=== PATIENT | female | born 1970 | race African-American/Black ===

== ENCOUNTER 2016-12-08 13:36 | Inpatient (IN) | payer OTHER ==
[2016-12-08 14:13] VITALS: BMI 26.6
[2016-12-08] MEDS ORDERED: P-EPHED 60MG/TRIPROLIDI 2.5MG TABLET PO PRN (16:51)
[2016-12-08] MEDS ORDERED: MAGNESIUM HYDROX 2400MG/30ML ORAL SUSPENSION 30 ML CUP PO PRN (16:51)
[2016-12-08] MEDS ORDERED: LOPERAMIDE HCL 2 MG CAPSULE PO PRN (16:51)
[2016-12-08] MEDS ORDERED: MAGNESIUM CITRATE 300 ML BOTTLE PO PRN (16:51)
[2016-12-08] MEDS ORDERED: ACETAMINOPHEN 325 MG TABLET (FP) PO PRN (16:51)
[2016-12-08] MEDS ORDERED: chlordiazePOXIDE HCL 25 MG CAPSULE PO PRN (16:51)
[2016-12-08] MEDS ORDERED: MENTHOL/PHENOL 1 EACH UD MM PRN (16:51)
[2016-12-08] MEDS ORDERED: NICOTINE POLACRILEX 2 MG GUM BC PRN (16:51)
[2016-12-08] MEDS ORDERED: MAG HYDROX/AL HYDROX/SIMETH 30 ML UNIT-DOSE CUP PO PRN (16:51)
[2016-12-08] MEDS ORDERED: guaiFENesin/D-METHORPHAN HB 10 ML UNIT-DOSE CUPS PO PRN (16:51)
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
[2016-12-08] MEDS ORDERED: chlordiazePOXIDE HCL 25 MG CAPSULE PO ONE (17:15)
[2016-12-08] MEDS: chlordiazePOXIDE HCL 25 MG CAPSULE PO SCH ×2 (17:37→22:21)
[2016-12-08] MEDS: NICOTINE 14 MG/24 HOURS TOPICAL PATCH TD SCH (17:40)
[2016-12-08] MEDS: TRIAMTERENE AND HCTZ - 37.5 MG/25 MG CAPSULE PO SCH (18:40)
[2016-12-08] MEDS: diphenhydrAMINE HCL 50 MG CAPSULE PO PRN (22:21)
[2016-12-08] MEDS: THIAMINE HCL 100 MG TABLET (FP) PO SCH (22:21)
[2016-12-08] MEDS: CLOTRIMAZOLE 1% CREAM 15 GM TUBE TP SCH (22:22)
[2016-12-08] MEDS: TOLNAFTATE 1% CREAM 15 GM TUBE TP SCH (22:22)
[2016-12-09] MEDS: chlordiazePOXIDE HCL 25 MG CAPSULE PO SCH ×4 (05:41→22:31)
[2016-12-09] MEDS: METHADONE HCL 40 MG DISPERSABLE TABLET PO SCH (07:58)
--- NOTE | 2016-12-09 08:33 | CONSULT ---
[facility] Psychiatric Consult - Data Date of interview: 12/09/16 Admission source: [facility] Identifying data: This is 46 years old female with psychiatric hospitalization history itnoxciated with: Alcohol, Heroin, Cocaine and Nicotine Substance Abuse History: - Smoking Cessation. Smoking history: Current every day smoker. Have you smoked in the past 12 months: Yes. Aproximately how many cigarettes per day: 4. Hx Chewing Tobacco Use: No. Initiated information on smoking cessation: Yes. 'Breaking Loose' booklet given: 12/08/16. - Substance & Tx. History. Hx Alcohol Use: Yes. Hx Substance Use: Yes. Substance Use Type : Alcohol, Cocaine, Heroin. Hx Substance Use Treatment: Yes (detox). - Substances Abused. Cocaine. Route: Inhalation. Frequency: 1-3 times last 30 days. Amount used: $100. Age of first use: 18. Date of Last Use: . Heroin. Route: Inhalation. Frequency: 3-6 times per week. Amount used : 2 bags. Age of first use: 25. Date of Last Use: 12/07/16. Alcohol- vodka. Route: Oral. Frequency: Daily. Amount used: 1 pt. Age of first use: 15. Date of Last Use: 12/07/16 Medical History: Denies Psychiatric History: Patient rteports unclear psychiatroic hospitalization after suicidal attempt byt OD on about more then 10 years ago, reports no suicidal history since then, reports taking prio0r to admission: Zoloft 50mg poqd. Ambien 10mg po qhs Physical/Sexual Abuse/Trauma History: Denies Additional Comment: Zoloft 50mg poqd. Ambien 10mg po qhs Mental Status Exam - Mental Status Exam Alert and Oriented to: Person Cognitive Function: Fair Patient Appearance: Unkempt Mood: Sad Affect: Flat Patient Behavior: Sedated Speech Pattern: Delayed Voice Loudness: Mildly Soft/Quiet Thought Process: Goal Oriented Thought Disorder: Being Controlled Hallucinations: Denies Suicidal Ideation: Denies Homicidal Ideation: Denies Insight/Judgement: Fair Sleep: Difficulty falling asleep Appetite: Fair Muscle strength/Tone: Mild Hypertonicity Gait/Station: Shuffling Additional Comments: Zoloft 50mg poqd. Ambien 10mg po qhs Psychiatric Findings - Problem List ([place] 1, 2,3) (1) Alcohol dependence with uncomplicated withdrawal Current Visit: Yes Status: Acute (2) Cocaine dependence, uncomplicated Current Visit: Yes Status: Acute (3) Opioid dependence on agonist therapy Current Visit: Yes Status: Acute (4) Nicotine dependence Current Visit: Yes Status: Acute (5) The administrative codes within the [employer] content you are accessing may have as of 07/10/2016. Please contact your IT Dept/Help Desk and request the latest Regulatory release be installed. IT Dept/Help Desk- Please refer to our FAQ page ([email or web address] or contact [employer] Customer Support at [email or web address] Current Visit: Yes Status: Acute (6) Drug-induced mood disorder Current Visit: Yes Status: Acute - Initial Treatment Plan Initial Treatment Plan: Zoloft 50mg poqd. Ambien 10mg po qhs
[2016-12-09 10:18] LABS: MCH 27.2 pg (25.7-33.7); MCHC 31.8 g/dl (32.0-36.0); MEAN CELL VOLUME 85.7 fl (80-96); MEAN PLT VOLUME 9.2 fl (7.5-11.1); PLATELET COUNT 187 K/MM3 (134-434); RDW 14.5 % (11.6-15.6); WHITE BLOOD COUNT 4.2 K/mm3 (4.0-10.0)
[2016-12-09 10:19] LABS: ALBUMIN 3.6 g/dl (3.4-5.0); ANION GAP 6 (8-16); BILIRUBIN,TOTAL 0.3 mg/dL (0.2-1.0); CO2 35 mmol/L (21-32); CREATININE 0.9 mg/dL (0.55-1.02); GLUCOSE,RANDOM 120 mg/dL (74-106); SGOT/AST 20 U/L (15-37); SGPT/ALT 20 U/L (12-78)
[2016-12-09 10:20] LABS: ALK PHOS 49 U/L (45-117)
[2016-12-09] MEDS: PRENATAL VITAMINS W/ FOLIC ACID TABLET (FP) PO SCH (10:20)
[2016-12-09] MEDS: CLOTRIMAZOLE 1% CREAM 15 GM TUBE TP SCH ×2 (10:27→23:09)
[2016-12-09] MEDS ORDERED: ONDANSETRON *ODT* 4 MG TABLET SL PRN (10:37)
[2016-12-09] MEDS: NICOTINE 14 MG/24 HOURS TOPICAL PATCH TD SCH (10:50)
[2016-12-09] MEDS: TOLNAFTATE 1% CREAM 15 GM TUBE TP SCH ×2 (10:53→22:28)
[2016-12-09] MEDS: SUMAtriptan SUCCINATE 50 MG TABLET PO SCH (11:25)
[2016-12-09] MEDS: TRIAMTERENE AND HCTZ - 37.5 MG/25 MG CAPSULE PO SCH (11:25)
[2016-12-09] MEDS: SERTRALINE HCL 50 MG TABLET (FP) PO SCH (11:25)
[2016-12-09 11:34] LABS: HIV 1 & 2 AB NEGATIVE; HIV 1 AGp24 NEGATIVE
--- NOTE | 2016-12-09 12:24 | PN ---
[facility] CIWA - CIWA Score Nausea/Vomitin-Int. Nausea w/Dry Heave Muscle Tremors: 4-Moderate,w/Arms Extend Anxiety: 4-Mod. Anxious/Guarded Agitation: 1-Slight > Activity Paroxysmal Sweats: 3 Orientation: 0-Oriented Tacttile Disturbances: 3-Moderate Itch/Numb/Burn Auditory Disturbances: 2-Mild Harshness/Frighten Visual Disturbances: 0-None Headache: 2-Mild CIWA-Ar Total Score: 23 S Progress Note (SOAP) Subjective: Poor Appetite, Vomiting, Interrupted sleep, Constipation, Sweating, Body Aches. Objective: pt. a & O X 3, OBSERVED AMBULATING ON UNIT. 12/09/16 12:22 Vital Signs Temperature 98.2 F 12/09/16 09:52 Pulse Rate 85 12/09/16 09:52 Respiratory Rate 16 12/09/16 09:52 Blood Pressure 146/74 12/09/16 09:52 O2 Sat by Pulse Oximetry (%) Laboratory Last Values WBC 4.2 K/mm3 (4.0-10.0) 12/09/16 06:00 RBC 4.77 M/mm3 (3.60-5.2) 12/09/16 06:00 Hgb 13.0 GM/dL (10.7-15.3) 12/09/16 06:00 Hct 40.9 % (32.4-45.2) 12/09/16 06:00 MCV 85.7 fl (80-96) 12/09/16 06:00 MCHC 31.8 g/dl (32.0-36.0) L 12/09/16 06:00 RDW 14.5 % (11.6-15.6) 12/09/16 06:00 Plt Count 187 K/MM3 (134-434) 12/09/16 06:00 MPV 9.2 fl (7.5-11.1) 12/09/16 06:00 Sodium 144 mmol/L (136-145) 12/09/16 06:00 Potassium 3.5 mmol/L (3.5-5.1) 12/09/16 06:00 Chloride 103 mmol/L (98-107) 12/09/16 06:00 Carbon Dioxide 35 mmol/L (21-32) H 12/09/16 06:00 Anion Gap 6 (8-16) L 12/09/16 06:00 BUN 9 mg/dL (7-18) 12/09/16 06:00 Creatinine 0.9 mg/dL (0.55-1.02) 12/09/16 06:00 Creat Clearance w eGFR > 60 (>60) 12/09/16 06:00 POC Glucometer 100 UNITS (()) 12/08/16 15:46 Random Glucose 120 mg/dL (74-106) H 12/09/16 06:00 Calcium 9.0 mg/dL (8.5-10.1) 12/09/16 06:00 Total Bilirubin 0.3 mg/dL (0.2-1.0) 12/09/16 06:00 AST 20 U/L (15-37) 12/09/16 06:00 ALT 20 U/L (12-78) 12/09/16 06:00 Alkaline Phosphatase 49 U/L (45-117) 12/09/16 06:00 Total Protein 7.0 g/dl (6.4-8.2) 12/09/16 06:00 Albumin 3.6 g/dl (3.4-5.0) 12/09/16 06:00 RPR Titer Nonreactive (NONREACTIVE) 12/09/16 06:00 HIV 1&2 Antibody Screen Negative 12/08/16 09:00 HIV P24 Antigen Negative 12/08/16 09:00 LABS NOTED. Assessment: 12/09/16 12:23 WITHDRAWAL SYMPTOMS. Plan: CONTINUE DETOX. CONTINUE TO MONITOR BP. ADVISED PT. TO FOLLOW-UP WITH ANHYDROUS [employer] [employer] SUPERVISOR / REHAB MEDICAL PROVIDER AFTER DISCAHRGE FROM DETOX FOR GENERAL MEDICAL ASSESSMENT AND ABNORMAL LAB VALUES.
--- NOTE | 2016-12-09 14:17 | EKG ---
Test Reason : Blood Pressure : / mmHG Vent. Rate : 063 BPM Atrial Rate : 063 BPM P-R Int : 156 ms QRS Dur : 094 ms QT Int : 430 ms P-R-T Axes : 063 031 002 degrees QTc Int : 440 ms NORMAL SINUS RHYTHM WITH SINUS ARRHYTHMIA MODERATE VOLTAGE CRITERIA FOR LVH, MAY BE NORMAL VARIANT NONSPECIFIC T WAVE ABNORMALITY ABNORMAL ECG NO PREVIOUS ECGS AVAILABLE Confirmed by PIERRE GOLDMAN MD ([id number]) on 12/09/2016 2:16:47 PM Referred By: Confirmed By:PIERRE GOLDMAN MD
[2016-12-09] MEDS: THIAMINE HCL 100 MG TABLET (FP) PO SCH (22:28)
[2016-12-09] MEDS: ZOLPIDEM TARTRATE 10 MG TABLET (PARK CARE ONLY) PO PRN (22:28)
[2016-12-10] MEDS: METHADONE HCL 40 MG DISPERSABLE TABLET PO SCH (05:52)
[2016-12-10] MEDS: chlordiazePOXIDE HCL 25 MG CAPSULE PO SCH ×2 (05:54→10:21)
[2016-12-10] MEDS: SUMAtriptan SUCCINATE 50 MG TABLET PO SCH (10:20)
[2016-12-10] MEDS: PRENATAL VITAMINS W/ FOLIC ACID TABLET (FP) PO SCH (10:20)
[2016-12-10] MEDS: TRIAMTERENE AND HCTZ - 37.5 MG/25 MG CAPSULE PO SCH (10:20)
[2016-12-10] MEDS: NICOTINE 14 MG/24 HOURS TOPICAL PATCH TD SCH (10:21)
[2016-12-10] MEDS: CLOTRIMAZOLE 1% CREAM 15 GM TUBE TP SCH ×2 (10:21→22:20)
[2016-12-10] MEDS: SERTRALINE HCL 50 MG TABLET (FP) PO SCH (10:21)
--- NOTE | 2016-12-10 10:48 | PN ---
[facility] CIWA - CIWA Score Nausea/Vomitin-Mild Nausea/No Vomiting Muscle Tremors: 4-Moderate,w/Arms Extend Anxiety: 3 Agitation: 4-Moderately Restless Paroxysmal Sweats: 3 Orientation: 0-Oriented Tacttile Disturbances: 0-None Auditory Disturbances: 0-None Visual Disturbances: 0-None Headache: 3-Moderate CIWA-Ar Total Score: 18 BHS Progress Note (SOAP) Subjective: headache sweats body aches irritable interrupted sleep Objective: 12/10/16 10:47 Vital Signs Temperature 97.9 F 12/10/16 10:14 Pulse Rate 81 12/10/16 10:14 Respiratory Rate 18 12/10/16 10:14 Blood Pressure 133/72 12/10/16 10:14 O2 Sat by Pulse Oximetry (%) Laboratory Tests 12/08/16 12/08/16 12/08/16 06:00 09:00 15:46 WBC RBC Hgb Hct MCV MCHC RDW Plt Count MPV Sodium Potassium Chloride Carbon Dioxide Anion Gap BUN Creatinine Creat Clearance w eGFR POC Glucometer 100 Random Glucose Calcium Total Bilirubin AST ALT Alkaline Phosphatase Total Protein Albumin RPR Titer Hepatitis C Antibody <0.1 HIV 1&2 Antibody Screen Negative HIV P24 Antigen Negative 12/09/16 12/09/16 12/09/16 06:00 06:00 06:00 WBC 4.2 RBC 4.77 Hgb 13.0 Hct 40.9 MCV 85.7 MCHC 31.8 L RDW 14.5 Plt Count 187 MPV 9.2 Sodium 144 Potassium 3.5 Chloride 103 Carbon Dioxide 35 H Anion Gap 6 L BUN 9 Creatinine 0.9 Creat Clearance w eGFR > 60 POC Glucometer Random Glucose 120 H Calcium 9.0 Total Bilirubin 0.3 AST 20 ALT 20 Alkaline Phosphatase 49 Total Protein 7.0 Albumin 3.6 RPR Titer Nonreactive Hepatitis C Antibody HIV 1&2 Antibody Screen HIV P24 Antigen 12/09/16 12/10/16 16:42 05:55 WBC RBC Hgb Hct MCV MCHC RDW Plt Count MPV Sodium Potassium Chloride Carbon Dioxide Anion Gap BUN Creatinine Creat Clearance w eGFR POC Glucometer 110 97 Random Glucose Calcium Total Bilirubin AST ALT Alkaline Phosphatase Total Protein Albumin RPR Titer Hepatitis C Antibody HIV 1&2 Antibody Screen HIV P24 Antigen awake/alert ambulating no acute distress Assessment: 12/10/16 10:47 withdrawal sx Plan: imitrex 50mg prn continue detox increase fluids
[2016-12-10] MEDS: TOLNAFTATE 1% CREAM 15 GM TUBE TP SCH ×2 (10:51→22:19)
[2016-12-10] MEDS: chlordiazePOXIDE 5 MG CAPSULE PO SCH ×2 (17:31→22:21)
[2016-12-10] MEDS: SUMAtriptan SUCCINATE 50 MG TABLET PO PRN ×2 (17:32→22:21)
[2016-12-10] MEDS: ZOLPIDEM TARTRATE 10 MG TABLET (PARK CARE ONLY) PO PRN (22:20)
[2016-12-10] MEDS: THIAMINE HCL 100 MG TABLET (FP) PO SCH (22:21)
[2016-12-11] MEDS: diphenhydrAMINE HCL 50 MG CAPSULE PO PRN (01:36)
[2016-12-11] MEDS: chlordiazePOXIDE 5 MG CAPSULE PO SCH ×2 (05:45→10:23)
[2016-12-11] MEDS: METHADONE HCL 40 MG DISPERSABLE TABLET PO SCH (05:45)
[2016-12-11] MEDS: PRENATAL VITAMINS W/ FOLIC ACID TABLET (FP) PO SCH (10:23)
[2016-12-11] MEDS: SERTRALINE HCL 50 MG TABLET (FP) PO SCH (10:24)
[2016-12-11] MEDS: SUMAtriptan SUCCINATE 50 MG TABLET PO PRN (10:25)
[2016-12-11] MEDS: NICOTINE 14 MG/24 HOURS TOPICAL PATCH TD SCH (10:27)
[2016-12-11] MEDS: CLOTRIMAZOLE 1% CREAM 15 GM TUBE TP SCH ×2 (10:27→22:29)
[2016-12-11] MEDS ORDERED: CYCLOBENZAPRINE HCL 10 MG TABLET (FP) PO PRN (10:36)
[2016-12-11] MEDS ORDERED: COLLOIDAL OATMEAL 1 BAR EACH TP PRN (10:36)
[2016-12-11] MEDS: TRIAMTERENE AND HCTZ - 37.5 MG/25 MG CAPSULE PO SCH (11:00)
[2016-12-11] MEDS: TOLNAFTATE 1% CREAM 15 GM TUBE TP SCH ×2 (11:01→22:29)
--- NOTE | 2016-12-11 12:29 | PN ---
S Progress Note (SOAP) Subjective: ALERT,IRRITABLE,ANXIOUS,INTERRUPTED SLEEP,REQUESTING AVEENO SOAP FOR SENSITIVE SKIN AND LACHYDDRIN LOTION Objective: 12/11/16 12:31 Vital Signs Temperature 96.9 F L 12/11/16 10:25 Pulse Rate 80 12/11/16 10:25 Respiratory Rate 20 12/11/16 10:25 Blood Pressure 115/76 12/11/16 10:25 O2 Sat by Pulse Oximetry (%) Assessment: 12/11/16 12:31 WITHDRAWAL SYMPTOM Plan: CONTINUE DETOX,BGM MONITORING,GLUCERNA 1 CAN PO BID,EXPLAINE DTO PATIENT COULD NOT GET ENSURE DUE TO HISTORY OF DIABETES MELLITUS
[2016-12-11] MEDS: chlordiazePOXIDE HCL 10 MG CAPSULE PO SCH ×2 (17:23→22:29)
[2016-12-11] MEDS: AMMONIUM LACTATE 12% LOTION 225 GM BOTTLE TP SCH (22:28)
[2016-12-11] MEDS: ZOLPIDEM TARTRATE 10 MG TABLET (PARK CARE ONLY) PO PRN (22:28)
[2016-12-11] MEDS: THIAMINE HCL 100 MG TABLET (FP) PO SCH (22:30)
[2016-12-12] MEDS: METHADONE HCL 40 MG DISPERSABLE TABLET PO SCH (05:36)
[2016-12-12] MEDS: chlordiazePOXIDE HCL 10 MG CAPSULE PO SCH ×2 (05:36→10:46)
[2016-12-12 06:54] VITALS: BP 135/88; PULSE 91; TEMP 97.1
--- NOTE | 2016-12-12 08:09 | PN ---
S Progress Note (SOAP) Subjective: ALERT,NO COMPLAINT Objective: 12/12/16 08:06 DETOX COMPLETED,NO WITHDRAWAL SYMPTOM 12/12/16 08:07 12/12/16 08:07 Vital Signs Temperature 97.1 F L 12/12/16 06:54 Pulse Rate 91 H 12/12/16 06:54 Respiratory Rate 20 12/12/16 06:54 Blood Pressure 135/88 12/12/16 06:54 O2 Sat by Pulse Oximetry (%) 12/12/16 08:07 Assessment: 12/12/16 08:07 NO WITHDRAWAL SYMPTOM BGM 100 Plan: DISCHARGE TODAY,FOLLOW UP WITH AFTER CARE PROGRAM ARRANGEMENT AND PMD FOR MEDICAL PROBLEM
--- NOTE | 2016-12-12 08:14 | DS ---
[facility] Detox Discharge Summary Admission Date: 12/08/16 Discharge Date: 12/12/16 - History Present History: Alcohol Dependence, Cocaine Dependence, MMTP Additional Comments: FOLLOW UP WITH AFTER CARE PROGRAM ARRANGEMENT AND PMD FOR MEDICAL PROBLEM Pertinent Past History: NICOTINE DEPENDENCE - Physical Exam Results Vital Signs: Vital Signs Temperature 97.1 F L 12/12/16 06:54 Pulse Rate 91 H 12/12/16 06:54 Respiratory Rate 20 12/12/16 06:54 Blood Pressure 135/88 12/12/16 06:54 O2 Sat by Pulse Oximetry (%) Pertinent Admission Physical Exam Findings: WITHDRAWAL SYMPTOM - Treatment Hospital Course: Detox Protocol Followed, Detoxed Safely, Responded well, Discharged Condition Good Patient has Accepted a Rehab Referral to: DECLINED - Medication Discharge Medications: Ambulatory Orders Sertraline HCl [Zoloft -] 50 mg PO DAILY #30 tablet 12/09/16 Zolpidem Tartrate [Ambien] 10 mg PO HS #14 tablet MDD 10 12/09/16 - AMA Did Patient Leave Against Medical Advice: No
[2016-12-12] MEDS: SERTRALINE HCL 50 MG TABLET (FP) PO SCH (10:47)
[2016-12-12] MEDS: PRENATAL VITAMINS W/ FOLIC ACID TABLET (FP) PO SCH (10:47)
[2016-12-12] MEDS: TOLNAFTATE 1% CREAM 15 GM TUBE TP SCH (10:47)
[2016-12-12] MEDS: CLOTRIMAZOLE 1% CREAM 15 GM TUBE TP SCH (10:47)
[2016-12-12] MEDS: TRIAMTERENE AND HCTZ - 37.5 MG/25 MG CAPSULE PO SCH (10:51)
[2016-12-12] MEDS: AMMONIUM LACTATE 12% LOTION 225 GM BOTTLE TP SCH (10:51)
[2016-12-12] MEDS: NICOTINE 14 MG/24 HOURS TOPICAL PATCH TD SCH (10:53)
== END 2016-12-12 10:55 | disposition home or self-care (01) | DRG 773 ==
LOC: YASAS 13:36 → Y6N 16:15
PROVIDERS: ADMIT Internal Medicine Addiction Medicine; ATTEND Internal Medicine Addiction Medicine
PROC: HZ2ZZZZ Detoxification Services for Substance Abuse Treatment (ICD-10-PCS; principal; 2016-12-12)
DX: F11.20 Opioid dependence, uncomplicated (principal); F10.230 Alcohol dependence with withdrawal, uncomplicated; F14.20 Cocaine dependence, uncomplicated; F17.210 Nicotine dependence, cigarettes, uncomplicated; F19.24 Other psychoactive substance dependence with psychoactive substance-induced mood disorder; L63.9 Alopecia areata, unspecified
CPT/HCPCS: 36415; 80053; 85027; 86593; 87389; 93005; 93010